=== PATIENT | male | born 1955 | race Caucasian/White ===

== ENCOUNTER 2019-11-25 05:56 | Emergency (ER) | payer MEDICARE, BC ==
[2019-11-25] MEDS ORDERED: LORazepam 2 MG/ML INJ IV PRN ×3 (06:09)
[2019-11-25] MEDS ORDERED: LORazepam 2 MG/ML INJ IV STA (06:09)
[2019-11-25] MEDS ORDERED: THIAMINE 100 MG/ML 2 ML VIAL IM STA (06:09)
[2019-11-25] MEDS ORDERED: SODIUM CHLORIDE 0.9% 1,000 ML IV ONE (06:11)
--- NOTE | 2019-11-25 06:16 | ED ---
General Adult HPI - General Chief complaint: Fall Stated complaint: Fall Time Seen by Provider: 11/25/19 06:02 Source: patient, EMS, RN notes reviewed, old records reviewed Mode of arrival: EMS - History of Present Illness Initial comments: Patient is a 64-year-old male presents to the ER today for evaluation for fall head injury. Patient is currently residing at [facility] facility for alcohol withdrawals. He reports that he checked it yesterday. Patient reports that they gave him Ativan before going to sleep last night. When they woke him he was stumbling while walking and off balance and reportedly fell in the hallway and hit the right side of his head. Patient also has a small cut on the right hand. Patient was not given Ativan yet this morning. It is our was some tremor. He denies any complaints of pain at this time. He was placed in a c- collar. - Related Data Allergies Allergy/AdvReac Type Severity Reaction Status Date / Time No Known Allergies Allergy Verified 11/25/19 06:08 Review of Systems ROS Statement: Those systems with pertinent positive or pertinent negative responses have been documented in the HPI. ROS Other: All systems not noted in ROS Statement are negative. Past Medical History Past Medical History: Hypertension History of Any Multi-Drug Resistant Organisms: None Reported Additional Past Surgical History / Comment(s): cartilidge repair bilat knees. shoulder surgery Past Psychological History: No Psychological Hx Reported Smoking Status: Never smoker Past Alcohol Use History: Abuse, Daily Past Drug Use History: None Reported General Exam - General Exam Comments Initial Comments: 64-year-old male. Alert and oriented X3. No distress. General appearance: alert, in no apparent distress Head exam: Present: atraumatic, normocephalic, normal inspection Eye exam: Present: normal appearance, PERRL, EOMI. Absent: scleral icterus, conjunctival injection, periorbital swelling ENT exam: Present: normal exam, mucous membranes moist Neck exam: Present: normal inspection, other (Patient has c collar placed. ). Absent: tenderness, meningismus, lymphadenopathy Respiratory exam: Present: normal lung sounds bilaterally Cardiovascular Exam: Present: regular rate, normal rhythm, normal heart sounds. Absent: systolic murmur, diastolic murmur, rubs, gallop, clicks GI/Abdominal exam: Present: soft, normal bowel sounds. Absent: distended, tenderness, guarding, rebound, rigid Extremities exam: Present: normal inspection, full ROM, normal capillary refill. Absent: tenderness, pedal edema, joint swelling, calf tenderness Back exam: Present: normal inspection Neurological exam: Present: alert, oriented X3, CN II-XII intact Psychiatric exam: Present: normal affect, normal mood Skin exam: Present: warm, dry, intact, normal color. Absent: rash Course Vital Signs 11/25/19 11/25/19 05:57 07:10 Temperature 99.3 F 98.8 F Pulse Rate 75 80 Respiratory 16 18 Rate Blood Pressure 157/105 155/101 O2 Sat by Pulse 99 100 Oximetry Medical Decision Making - Medical Decision Making 64-year-old male says return today after falling today. He is at [facility] facility for alcohol detoxification. He woke somewhat was unsteady. He weighs was related to the Ativan. He arrived to the emergency department shaking tremulous. Concern for developing DTs. He was given 1 mg of Ativan. He has had a contusion of the forehead. Patient had CT brain and C-spine which was negative for any acute process. Patient is removed from c-collar. She'll be discharged at this time was feeling very well. Discussed return parameters. - Radiology Data Radiology results: report reviewed CT shows no acute intracranial process. Mild soft tissue swelling on the right frontal region. No acute osseous normality cervical spine. Disposition Clinical Impression: Fall, Head injury Disposition: HOME SELF-CARE Condition: Good Instructions (If sedation given, give patient instructions): Head Injury (ED) Additional Instructions: Returns to [facility] facility. Return to emergency department if any alarming signs or symptoms occur. Is patient prescribed a controlled substance at d/c from ED?: No Referrals: Juan Hooker MD [Primary Care Provider] - 1-2 days Time of Disposition: 07:46
[2019-11-25 07:13] VITALS: PULSE 80; RESP 18; TEMP 98.8
--- NOTE | 2019-11-25 07:40 | CT ---
EXAMINATION TYPE: CT brain grecia wo con DATE OF EXAM: 11/25/2019 COMPARISON: None HISTORY: Fall, head injury CT DLP: 1603.7 mGycm, Automated exposure control for dose reduction was used. CONTRAST: Patient injected with 0 mL of Isovue 300. CT of the brain is performed utilizing 3 mm thick sections through the posterior fossa and 3 mm thick sections through the remaining calvarium. Study is performed within 24 hours of arrival to the hospital. No abnormal hyperdensity is present to suggest an acute intracranial hemorrhage. No mass lesion is evident. There is some calcification along the anterior falx. No acute infarcts are evident. Ventricles and sulci are appropriate for the patient age. Paranasal sinuses and mastoid air cells within the [id number] are clear. There is soft tissue swelling over the right frontal region. No underlying fracture is evident. IMPRESSIONS: 1. No acute intracranial process. 2. Mild soft tissue swelling over the right frontal region CT cervical spine. COMPARISON: None CT of the cervical spine is performed in the axial plane at 2 mm thick sections. Reconstructed image s in the coronal, and sagittal plane are reviewed on the computer. No acute fractures are evident. Vertebral body alignment is normal. Disc heights are preserved. Vertebral body heights are preserved. No spinal canal stenosis is evident. No neural foraminal stenosis is evident. IMPRESSIONS: 1. No acute osseous abnormality cervical spine.
[2019-11-25] MEDS ORDERED: lisinopriL 20 MG TAB PO STA (07:46)
[2019-11-25 08:17] VITALS: BP 146/93
[2019-11-25] MEDS ORDERED: THIAMINE 100 MG TAB PO SCH (17:30)
== END 2019-11-25 08:17 | disposition home or self-care (01) ==
LOC: EC 05:56
DX: S00.83XA Contusion of other part of head, initial encounter (principal); W01.198A Fall on same level from slipping, tripping and stumbling with subsequent striking against other object, initial encounter; Y92.238 Other place in hospital as the place of occurrence of the external cause; Z91.81 History of falling
CPT/HCPCS: 72125; 70450; 99284; 96374; 96376; 96361; 96372; J2060; J3411